=== PATIENT | male | born 1935 | race Asian ===

== ENCOUNTER 2020-09-12 09:49 | Emergency (ER) | payer OTHER ==
[~2020-09-12] VITALS: Ht 172.7 cm; Wt 74.8 kg
[2020-09-12 10:18] VITALS: Ht 172.7 cm; Wt 74.8 kg
[2020-09-12 11:57] LABS: RED CELL DISTRIBUTION WIDTH 15.6 % (11.5-14.5)
[2020-09-12 12:00] LABS: PLATELET COUNT 902 x10^3mcL (130-400)
[2020-09-12 12:01] LABS: BASOPHIL % 0.8 % (0-2)
[2020-09-12 13:23] LABS: ALBUMIN 3.7 g/dL (3.4-5.0); CARBON DIOXIDE 29.7 mmol/L (21-32); CHLORIDE SERUM 100 mmol/L (98-107); CREATININE SERUM 1.3 mg/dL (0.7-1.3); GLUCOSE SERUM 116 mg/dL (74-106); POTASSIUM SERUM 3.8 mmol/L (3.5-5.1); SODIUM SERUM 138 mmol/L (136-145); TOTAL PROTEIN, SERUM 8.3 g/dL (6.4-8.2)
[2020-09-12 13:24] LABS: ALKALINE PHOSPHATASE 65 U/L (46-116); ALT/SGPT 22 U/L (16-63); AST/SGOT 24 U/L (15-37); CHOLESTEROL 170 mg/dL (<200)
[2020-09-12 13:28] LABS: HDL CHOLESTEROL 41 mg/dL (40-60)
[2020-09-12 15:18] VITALS: BP 128/74
== END 2020-09-12 15:19 | disposition home or self-care (01) ==
LOC: ED 09:49
PROVIDERS: Emergency Medicine
DX: R42 Dizziness and giddiness (principal); M54.9 Dorsalgia, unspecified; D72.829 Elevated white blood cell count, unspecified; I10 Essential (primary) hypertension; E78.00 Pure hypercholesterolemia, unspecified; Z20.828 Contact with and (suspected) exposure to other viral communicable diseases
CPT/HCPCS: J8597; Q0092; U0003-CS